=== PATIENT | female | born 1990 | race Caucasian/White ===

== ENCOUNTER 2018-10-22 17:51 | Emergency (ER) | payer OTHER ==
[~2018-10-22] VITALS: Ht 172.7 cm; Wt 66.0 kg
[2018-10-22 18:06] VITALS: BP 136/54
--- NOTE | 2018-10-22 18:30 | NUR ---
pt in xr at this time.
[2018-10-22] MEDS ORDERED: HYDROcodone/APAP 5/325 TABLET PO ONE (19:00)
[2018-10-22] MEDS ORDERED: HYDROcodone/APAP 5/325 TABLET ONE (19:22)
--- NOTE | 2018-10-22 19:42 | NUR ---
ice applied to injuries
== END 2018-10-22 20:45 | disposition home or self-care (01) ==
LOC: ED 20:00
DX: S52.125A Nondisplaced fracture of head of left radius, initial encounter for closed fracture (principal); W17.89XA Other fall from one level to another, initial encounter; Y93.39 Activity, other involving climbing, rappelling and jumping off; Y92.89 Other specified places as the place of occurrence of the external cause; Y99.8 Other external cause status
CPT/HCPCS: 29125; 99283